=== PATIENT | male | born 1975 | race Caucasian/White ===

== ENCOUNTER → 2019-08-24 15:03 | Outpatient (CLI) | payer MEDICAID, SELFPAY ==
--- NOTE | 2019-08-24 14:25 | CYST_PTH ---
PATIENT: BRAD KELLY LOC: [facility] U#:[id number] AGE/SX: 50/M ROOM: RE08/24/[address]: Dr. Gisele Fierro MD : 1975 BED: DIS: SPEC #: [id number] RECD: 08/24/19 15:02 STATUS: SAURABH RETurner #: [id number] OTILIO: 08/24/19 14:[address]: Gisele Fierro DEPT: SURGICAL PATHOLOGY RECD BY: Shivam Yi ENTERED: 08/25/19 08:51 SP TYPE: Cyst OTHR DR: Cece Whatley, PROFESSOR OF COMMUNICATION ARTS-C Tissues: CYST Procedures: Surgery Specimen Level III HEADER OPERATION: Excision sebaceous cyst mid upper back PRE-OP DIAGNOSIS: Sebaceous cyst back TISSUE SUBMITTED: Sebaceous cyst mid upper back MICROSCOPIC DIAGNOSIS Sebaceous cyst mid upper back, excision: Epidermal inclusion cyst. AM:cecy 08/26/19 MICROSCOPIC DESCRIPTION Slides are reviewed. GROSS DESCRIPTION Received in fixative is one container labeled with the patient's name and designated cyst on back. The specimen consists of an ellipse of light herrera skin measuring 0.2 x 0.1 cm. Attached to this is a cyst measuring 1.6 cm in greatest dimension and containing cheesy white material. Shell Press Operator sections are submitted in two cassettes. / AM:cecy 08/25/19 TC:5 CPT: 48409
[2019-08-24 14:30] VITALS: BMI 31.5
== END ==
PROVIDERS: Referring Provider Surgery; Visit Provider Surgery
DX: L72.3 Sebaceous cyst (principal)
CPT/HCPCS: 88304

== ENCOUNTER 2021-12-09 16:37 | Outpatient (CLI) | payer MEDICAID, SELFPAY ==
--- NOTE | 2021-12-09 16:52 | US_ITS ---
STUDY: SUPERFICIAL ULTRASOUND - LOWER STERNAL REGION. REASON FOR EXAM: Male, 46 years old. Sternal pain and possible cyst. TECHNIQUE: A superficial ultrasound was performed with real-time and static grande-scale imaging. COMPARISON: None. FINDINGS: Targeted ultrasound of the palpable abnormality was obtained. No sonographic abnormality is seen. US/Chest IMPRESSION: Unremarkable targeted ultrasound. Electronically Signed: Vijay Vargas MD at 9:16 EST ,
== END 2021-12-09 23:59 | disposition home or self-care (01) ==
LOC: US 16:48
PROVIDERS: PCP Nurse Practitioner Adult Health; Referring Provider Nurse Practitioner Adult Health; Visit Provider Nurse Practitioner Adult Health
DX: R07.9 Chest pain, unspecified (principal)
CPT/HCPCS: 76604

== ENCOUNTER 2022-08-25 00:53 | Emergency (ER) | payer MEDICAID, SELFPAY ==
[2022-08-25 01:01] VITALS: BP 122/80; PULSE 98; RESP 16; TEMP 36.6; O2SAT 95; BMI 27.2
--- NOTE | 2022-08-25 01:17 | EX.ED.DYSGE1 ---
HPI History of Present Illness Chief Complaint: Ear Problem Detail of Chief Complaint: Possible foreign body right ear Informant: patient Narrative Narrative: Patient presents the emergency department with concern that he may have a bug in his right ear. Patient states he was sitting on a couch when he felt something crawl into his ear. Patient try to flush it out with saline and also put peroxide in his ear. Patient states the ear is a little bit sore but really cannot feel a thing moving around. Patient states at 1 point he felt that he had a hold of it and felt like something hard and firm in his tweezers. [facility] Medical History (Updated 08/25/22 @ 01:[address] Jeannie Johnson, DO) Sebaceous cyst Home Medications NK 08/25/22 [History Last Taken Unknown] Allergy/AdvReac Type Severity Reaction Status Date / Time No Known Allergies Allergy Verified 09/01/19 12:55 Surgical History Hx of excision of dermoid cyst Social History (Updated 09/01/19 @ 14:45 by Meli LAKHANI, PA-C) Smoking Status: Current every day smoker tobacco type: cigarettes ROS ROS ED Review of Systems ROS Unobtainable: other Constitutional Constitutional ED: Reports lethargy; Denies chills, fever(s), sweats or weight loss Eyes Eyes: Denies blurry vision, change in vision or diplopia ENT ENT ED: Reports other Details: Right ear foreign body ; Denies rhinorrhea or sore throat Cardiovascular Cardiovascular: Denies chest pain, orthopnea or racing heartbeat Respiratory/Chest Respiratory/Chest: Denies cough, dyspnea, dyspnea on exertion, orthopnea or sputum Gastrointestinal Gastrointestinal: Denies abdominal pain, diarrhea, nausea or vomiting Genitourinary Genitourinary ED: Denies dysuria, hematuria or urinary frequency Musculoskeletal Musculoskeletal: Denies arthralgias, back pain, myalgias or neck pain Integumentary Denies abscess, Abrasions or rash Neurologic Neurologic: Denies headache(s) or weakness Psychiatric Psychiatric: Denies anxiety, depression or suicidal thoughts Endocrine Endocrinology: Denies polydipsia, polyphagia or polyuria Hematologic/Lymphatic Hematologic/Lymphatic: Denies easy bleeding, easy bruising or lymphadenopathy Allergic/Immunologic Allergic/Immunologic ED: Denies mouth swelling, tongue swelling or urticaria EXAM Physical Exam Const Vital Signs: 08/25/22 01:01 Temperature 98 F Temperature Source Oral Pulse Rate 98 Respiratory Rate 16 Blood Pressure 122/80 H Blood Pressure Mean 94 Pulse Ox 95 Oxygen Delivery Method Room Air Positive well nourished and well developed General Appearance ED: well developed and NAD HEENT Reports TM's clear and moist mucous membranes HEENT Narrative: Evaluation of the right ear-I do not appreciate any foreign body within the ear canal. I I am able to visualize approximately 90% of the eardrum however the medial 10% I am unable to visualize due to the patient's anatomy and ear canal. The TM otherwise looks normal. normocephalic and atraumatic; Negative for trauma or tenderness Tympanic Membrane ED: Yes TM's clear Eyes PERRL and EOMs intact bilaterally General Eye ED: Negative for pale conjunctiva or scleral icterus Neck no lymphadenopathy, supple and no JVD General: Negative for tenderness Chest Wall inspection of chest normal and palpation of chest normal Chest: Negative for tenderness Resp normal respiratory effort and clear to auscultation bilaterally Effort and Inspection: Negative for respiratory distress or pain with movement Auscultation: Negative for rhonchi, wheezes or diminished lung sounds Cardio regular rate, regular rhythm, S1 normal heart sound, S2 normal heart sound and no murmurs Peripheral Pulses: pulses 2+ throughout GI normal to inspection, nondistended, normoactive bowel sounds, soft to palpation, non-tender, non-distended and no masses Back/Spine no CVA tenderness and no thoracic nor lumbar tenderness Extremity normal to inspection General Extremety ED: Negative for edema General Extremity: Negative for edema Neuro oriented x3, CN's II-XII intact bilaterally, no sensory deficits noted and gait normal Sensorium / Orientation: awake, alert, oriented to person, oriented to place and oriented to time Motor Exam: strength 5/5 throughout and strength abnormal Psych mental status grossly normal Skin no rashes or lesions noted and no wounds MDM MDM MDM Narrative Medical decision making narrative: At this point I do not see any foreign body within the ear canal. I will refer him to ENT if he continues to have that sensation or increased pain. Discharge Plan Triage Chief Complaint: Ear Problem ED Provider: Jeannie Johnson Dx/Rx/DC Orders Clinical Impression: Foreign body sensation in right ear canal Instructions: ED Earache Without Infection (Adult), ED Foreign Body, Ear Canal (Removed) Prescriptions: No Action NK Referrals: Ramana Ruvalcaba MD [Med Staff - Active Staff] - Disposition Disposition: Home, Self Care
== END 2022-08-25 01:30 | disposition home or self-care (01) ==
LOC: ED 01:23
PROVIDERS: Emergency Provider Emergency Medicine; Visit Provider Emergency Medicine
DX: T16.1XXA Foreign body in right ear, initial encounter (principal); F17.210 Nicotine dependence, cigarettes, uncomplicated; X58.XXXA Exposure to other specified factors, initial encounter
CPT/HCPCS: 99282